=== PATIENT | male | born 1985 | race Caucasian/White ===

== ENCOUNTER 2017-04-18 19:56 | Emergency (ER) | payer OTHER ==
[~2017-04-18] VITALS: Ht 175.3 cm; Wt 94.9 kg
[~2017-04-18 19:56] MED LIST: ENDOCET 5-3251 EACH PO; FLUOXETINE HCL20 MG PO; KEFLEX500 MG PO; NOHOMEMEDS
[2017-04-18 19:58] VITALS: BP 140/68
[2017-04-18] MEDS ORDERED: CATAPRES0.2 MG PO (20:24)
[2017-04-18] MEDS ORDERED: ABILIFY30 MG PO (20:24)
[2017-04-18] MEDS ORDERED: IBUPROFEN800 MG PO (20:24)
[2017-04-18] MEDS ORDERED: GABAPENTIN300 MG PO (20:25)
[2017-04-18] MEDS ORDERED: FLEXERIL10 MG PO (21:39)
[2017-04-18] MEDS ORDERED: NAPROXEN500 MG PO (21:39)
[2017-04-24] MEDS ORDERED: VOLTAREN75 MG PO (19:11)
[2017-04-24] MEDS ORDERED: TYLENOL WITH C1 EACH PO (19:11)
== END 2017-04-18 21:50 | disposition home or self-care (01) ==
LOC: EME 19:56
DX: S70.12XA Contusion of left thigh, initial encounter (principal); W20.8XXA Other cause of strike by thrown, projected or falling object, initial encounter; X50.1XXA Overexertion from prolonged static or awkward postures, initial encounter; Y99.0 Civilian activity done for income or pay; F17.200 Nicotine dependence, unspecified, uncomplicated
CPT/HCPCS: 73552; 73564; 93971; 99281; 99284; J1885

== ENCOUNTER 2017-07-06 11:54 | Emergency (ER) | payer OTHER ==
[~2017-07-06] VITALS: Ht 172.7 cm; Wt 113.0 kg
[~2017-07-06 11:54] MED LIST changes: +ABILIFY30 MG PO; +CATAPRES0.2 MG PO; +FLEXERIL10 MG PO; +GABAPENTIN300 MG PO; +IBUPROFEN800 MG PO; +NAPROXEN500 MG PO; +TYLENOL WITH C1 EACH PO; +VOLTAREN75 MG PO
[2017-07-06] MEDS ORDERED: MOTRIN800 MG PO (15:08)
[2017-07-06 15:46] VITALS: BP 123/72
== END 2017-07-06 15:47 | disposition home or self-care (01) ==
LOC: EME 11:54
DX: S93.401A Sprain of unspecified ligament of right ankle, initial encounter (principal); X58.XXXA Exposure to other specified factors, initial encounter; M79.89 Other specified soft tissue disorders; M79.671 Pain in right foot; F17.200 Nicotine dependence, unspecified, uncomplicated
CPT/HCPCS: 73610; 93971; 99281; 99284

== ENCOUNTER → 2017-08-01 | Outpatient (CLI) | payer OTHER ==
[~2017-08-01] MED LIST changes: +MOTRIN800 MG PO
== END | disposition home or self-care (01) ==
LOC: CDC 12:02
DX: Z01.810 Encounter for preprocedural cardiovascular examination (principal); M25.562 Pain in left knee; M23.322 Other meniscus derangements, posterior horn of medial meniscus, left knee; M22.42 Chondromalacia patellae, left knee
CPT/HCPCS: 93000